=== PATIENT | female | born 1955 | race Caucasian/White ===

== ENCOUNTER 2017-04-26 21:51 | Emergency (ER) | payer OTHER ==
[2017-04-26 22:06] VITALS: TEMP 98.1
[2017-04-26] MEDS ORDERED: FLUORESCEIN SODIUM 1 MG STRIP OP ONE (22:12)
--- NOTE | 2017-04-26 22:26 | EDPHY ---
H & P Time Seen by Provider: 04/26/17 22:02 HPI/ROS: HPI Visual changes. 61-year-old female by private vehicle with her . This patient reports that at 9:00 p.m. she developed which she described as lightening like flashes of light in her upper and lower visual martin. She reports that she noticed this much more when she goes from a light room out into a dark area. She reports that she has had floaters in the past. She reports this is different from what she experienced with her floaters. She denies a black curtain type sensation in her visual field. She had an MRI of her brain about 1 year ago secondary to various neurologic complaints. This showed some white matter changes but otherwise was unremarkable. There was not any evidence of MS. She denies any history of trauma. She does not wear contact lenses. ROS: Constitutional: No fever, no chills. No weakness. Eyes: No discharge. As above. ENT: No sore throat. No nasal congestion or rhinorrhea. Respiratory: No cough. No shortness of breath. Cardiac: No chest pain, no palpitations. Gastrointestinal: No abdominal pain, no vomiting, no diarrhea. Genitourinary: No hematuria. No dysuria or increased frequency with urination. Musculoskeletal: No back pain. No neck pain. No myalgias or arthralgias. Skin: No rashes. Neurological: No headache. No focal weakness or altered sensation. Past medical history: Hypertension. She takes Diovan. Social history: Nonsmoker. No alcohol. Here with her . Physical Exam: General Appearance: Alert, no distress. This patient is responding to questions appropriately and in full sentences. This patient appears well- hydrated and well-nourished. Eyes: Pupils equal and round no pallor or injection. No lid edema, erythema or injection. No photophobia. No nystagmus. Right eye; Shaffer lamp exam with fluorescein staining; no Magda's sign, evidence of abrasion, ulceration or other abnormality. Slit-lamp exam; no hypopyon, no hyphema, anterior chamber is deep and clear, no cell/flare. The upper and lower lids were everted with no gross evidence of foreign body. ENT, Mouth: Mucous membranes are moist. The pharyngeal tissues are unremarkable. No edema or swelling. No asymmetry suggestive of abscess. No erythema or exudates. Respiratory: There are no retractions, lungs are clear to auscultation with good air movement bilaterally. Cardiovascular: Regular rate and rhythm. No murmur. Gastrointestinal: Abdomen is soft and nontender, no masses, bowel sounds normal. No focal tenderness at McBurney's point. No Maciel sign. Neurological: Motor sensory function is grossly intact. Cranial nerves are normal. Gait is normal. Skin: Warm and dry, no rashes. Musculoskeletal: Neck is supple and nontender. Extremities are symmetrical. All joints range without pain or impingement. Psychiatric: No agitation. No depression. Database: EKG: Imaging: Procedures: Ultrasound of the right eye: Using the vascular probe at a depth ranging from 2 -3 cm, no ultrasonographic evidence of retinal detachment appreciated. Procedure performed by myself. Emergency department course: Patient's presentation is not consistent with detached retina. Detached vitreous is possible and more likely. 12:00 a.m., we have tried multiple times to call the on-call receiving barn custodian, Dr. Barba. We have not received any call back. The we then tried to call receiving barn custodian who are not on-call. We have tried Dr. Mirza, Dr. Gray and Dr. Leavitt. We have not received a return call from anyone. I re-evaluated the patient. She reports that this time her symptoms have resolved. She has denied any decrease in her vision from her right eye. She denies headache. She feels comfortable going home. The plan will be to have her follow up with Dr. Wes Gray or Dr. Mirza in the morning in their office. She feels comfortable with this plan as does her . They have both been instructed to return to the emergency department if they are unable to get in to see Dr. Gray or Dr. Mirza tomorrow morning. Return to emergency department precautions were reviewed with them. All of her questions were answered. She was discharged home in good condition. 4:00 a.m., I finally spoke with Dr. Taiwo Barba. He was having an issue with his phone. Dr. Barba was given this patient's personal phone numbers. He will call the patient 1st thing in the morning and have the patient seen in his office in the morning. Differential Diagnosis: The differential diagnosis on this patient includes but is not limited to vitreous detachment, atypical migraine syndrome. Retinal detachment, MS, retinal artery occlusion, CVA, TIA unlikely. This represents a partial list of diagnoses considered. These considerations are based on history, physical exam , past history, reassessment and diagnostic testing. Smoking Status: Never smoked Constitutional: Initial Vital Signs Temperature (C) 36.7 C 04/26/17 22:03 Heart Rate 96 04/26/17 22:03 Respiratory Rate 18 04/26/17 22:03 Blood Pressure 149/100 H 04/26/17 22:03 O2 Sat (%) 94 04/26/17 22:03 O2 Delivery Mode Room Air Allergies/Adverse Reactions: No Known Allergies Allergy (Unverified 04/26/17 22:05) Home Medications: Medication Instructions Recorded DIOVAN 04/12/10 Advair 100/50 (RX) 02/01/15 Albuterol 02/01/15 Clonazepam 02/01/15 Diazepam [Valium] 5 mg PO TID PRN #15 tab 02/01/15 Meclizine HCl [Meclizine HCl 25 mg 50 mg PO BID PRN #25 tab 02/01/15 (RX,OTC)] Albuterol Hfa Anes Only [Proair 2 puffs IH Q4 PRN #1 mdi 04/26/15 Hfa Icu (*)] Fluticasone Hfa 220 Mcg [Flovent 2 puffs IH DAILY #1 mdi 04/26/15 220 MCG Hfa MDI (*)] clonazePAM [Klonopin (*)] 0.5 - 1 mg PO TID PRN #20 tab 04/26/15 predniSONE 40 mg PO DAILY #10 tab 04/26/15 Departure - Departure Disposition: Home, Routine, Self-Care Clinical Impression: Vision changes Condition: Good Instructions: Visual Floaters (ED) Additional Instructions: Read and follow provided instructions. Follow-up with Ophthalmology, Dr. Wes Gray or Dr. Mirza, tomorrow morning as discussed. You are to call their office in the morning at 9:00 a.m. for appointment time. Explain this is for an emergency department follow-up. Explain that we were concerned that you might have a vitreous detachment. Retinal detachment less likely. Explain that the emergency physician tried to contact the on-call receiving barn custodian as well as all of them multiple times last night with no return call. No strenuous physical activity. Return to the emergency department for worsening symptoms/visual changes, headache, vomiting or other serious concerns. Referrals: Wes Gray MD [Medical Doctor] - As per Instructions Jong Mirza MD [Medical Doctor] - As per Instructions
[2017-04-27 00:04] VITALS: BP 118/76; PULSE 74; RESP 16; O2SAT 96
== END 2017-04-27 00:19 | disposition home or self-care (01) ==
DX: H53.8 Other visual disturbances (principal); I10 Essential (primary) hypertension

== ENCOUNTER → 2017-05-07 | Outpatient (CLI) | payer OTHER | LOC: CIMAGING 10:26 | PROVIDERS: ATTEND Family Medicine | DX: K76.0 Fatty (change of) liver, not elsewhere classified (principal); K76.89 Other specified diseases of liver | CPT/HCPCS: 76700-PO ==

== ENCOUNTER → 2017-05-24 | Outpatient (CLI) | payer OTHER ==
[~2017-05-24] MED LIST: IOPAMIDOL (ISOVUE-300) 100 ML BTL ONE
== END ==
LOC: FIMAGING 09:21
PROVIDERS: ATTEND Family Medicine
DX: R11.0 Nausea (principal); R74.0 Nonspecific elevation of levels of transaminase and lactic acid dehydrogenase [LDH]; R93.5 Abnormal findings on diagnostic imaging of other abdominal regions, including retroperitoneum
CPT/HCPCS: Q9967

== ENCOUNTER → 2017-06-25 | Outpatient (CLI) | payer OTHER | LOC: CIMAGING 09:15 | DX: H31.8 Other specified disorders of choroid (principal); C71.9 Malignant neoplasm of brain, unspecified | CPT/HCPCS: Q9967 ==

== ENCOUNTER 2017-07-13 07:29 | Day surgery (SDC) | payer OTHER ==
--- NOTE | 2017-07-13 06:35 | PDANEPAE ---
ANE History of Present Illness 62 yo female with upper abd pain/bloating/nausea and family history of pancreatic cancer for EGD/EUS. ANE Past Medical History - Cardiovascular History Hx Hypertension: Yes Hx Arrhythmias: No Hx Chest Pain: No Hx Coronary Artery / Peripheral Vascular Disease: No Hx CHF / Valvular Disease: No Hx Palpitations: No - Pulmonary History Hx COPD: No Hx Asthma/Reactive Airway Disease: Yes Hx Recent Upper Respiratory Infection: No Hx Oxygen in Use at Home: No Hx Sleep Apnea: Yes Sleep Apnea Screening Result - Last Documented: Negative Pulmonary History Comment: ROMEL -unable to tolerate CPAP - Neurologic History Hx Cerebrovascular Accident: No Hx Seizures: No Hx Dementia: No Neurologic History Comment: occ migraine - Endocrine History Hx Diabetes: No Hypothyroid: No Obesity: no - Renal History Hx Renal Disorders: No - Liver History Hx Hepatic Disorders: No - Neurological & Psychiatric Hx Hx Neurological and Psychiatric Disorders: Yes Neurological / Psychiatric History Comment: low back pain while sitting,lying on (stretcher) - Cancer History Hx Cancer: No - Congenital Disorder History Hx Congenital Disorders: No - GI History Hx Gastrointestinal Disorders: Yes Gastrointestinal History Comment: bloating,nausea, LUQ pain, family hx pancreatic CA - Other Health History Other Health History: fibromyalgia. occ vertigo- no Rx past yr - Chronic Pain History Chronic Pain: No - Surgical History Prior Surgeries: bowel resection 2010. resection of adhesions 2016. hysterectomy. lumbar discectomy ANE Review of Systems Review of Systems: - Exercise capacity METS (RN): 4 METS ANE Patient History - Allergies Allergies/Adverse Reactions: No Known Allergies Allergy (Verified 07/12/17 16:50) - Home Medications Home Medications: DIOVAN 04/12/10 [Last Taken 04/10/10 21:00] Omeprazole 07/12/17 [Last Taken Unknown] - Smoking Hx Smoking Status: Former smoker - Alcohol Use Alcohol Use: None ANE Labs/Vital Signs - Vital Signs Height: 152.4 cm Weight: 65.771 kg ANE Anesthesia Plan Anesthesia Plan: GA with mask Total IV Anesthesia: Yes
[2017-07-13] MEDS ORDERED: LR 1,000 ML IV ONE (07:42)
[2017-07-13] MEDS ORDERED: LIDOCAINE 1% 2 ML INJ ID PRN (07:42)
[2017-07-13] MEDS ORDERED: fentaNYL 100 MCG/2 ML INJ IVP PRN (08:29)
[2017-07-13] MEDS ORDERED: NALOXONE HCL 0.4 MG/ML INJ IVP PRN ×2 (08:29→10:16)
[2017-07-13] MEDS ORDERED: ALBUTEROL 3 ML DEYVIAL IH PRN (08:29)
[2017-07-13] MEDS ORDERED: LR 500 ML IV PRN (08:29)
[2017-07-13] MEDS ORDERED: ONDANSETRON 4 MG/2 ML VIAL IVP PRN (08:29)
--- NOTE | 2017-07-13 08:29 | PDANEPAE ---
ANE History of Present Illness 62 year old female for EUS/EGD. ANE Past Medical History - Cardiovascular History Hx Hypertension: Yes Hx Arrhythmias: No Hx Chest Pain: No Hx Coronary Artery / Peripheral Vascular Disease: No Hx CHF / Valvular Disease: No Hx Palpitations: No - Pulmonary History Hx COPD: No Hx Asthma/Reactive Airway Disease: Yes Hx Recent Upper Respiratory Infection: No Hx Oxygen in Use at Home: No Hx Sleep Apnea: Yes Sleep Apnea Screening Result - Last Documented: Negative Pulmonary History Comment: ROMEL -unable to tolerate CPAP - Neurologic History Hx Cerebrovascular Accident: No Hx Seizures: No Hx Dementia: No Neurologic History Comment: occ migraine - Endocrine History Hx Diabetes: No Hypothyroid: No Obesity: no - Renal History Hx Renal Disorders: No - Liver History Hx Hepatic Disorders: No - Neurological & Psychiatric Hx Hx Neurological and Psychiatric Disorders: Yes Neurological / Psychiatric History Comment: low back pain while sitting,lying on (stretcher) - Cancer History Hx Cancer: No - Congenital Disorder History Hx Congenital Disorders: No - GI History Hx Gastrointestinal Disorders: Yes Gastrointestinal History Comment: bloating,nausea, LUQ pain, family hx pancreatic CA - Other Health History Other Health History: fibromyalgia. occ vertigo- no Rx past yr - Chronic Pain History Chronic Pain: No - Surgical History Prior Surgeries: bowel resection 2010. resection of adhesions 2016. hysterectomy. lumbar discectomy ANE Review of Systems Review of systems is: negative Review of Systems: - Exercise capacity Exercise capacity: >=4 METS METS (RN): 4 METS ANE Patient History - Allergies Allergies/Adverse Reactions: No Known Allergies Allergy (Verified 07/12/17 16:50) - Home Medications Home medications: home medication list seen and reviewed Home Medications: DIOVAN 04/12/10 [Last Taken 04/10/10 21:00] Omeprazole 07/12/17 [Last Taken Unknown] - NPO status NPO Status: no food or drink >8 hours NPO Since - Liquids (Date): 07/13/17 NPO Since - Liquids (Time): 06:00 NPO Since - Solids (Date): 07/12/17 NPO Since - Solids (Time): 18:00 - Anes Hx Anes Hx: no prior problems - Alcohol Use Alcohol Use: None - Family Anes Hx Family Anes Hx: neg - N/A ANE Labs/Vital Signs - Vital Signs Vital Signs: reviewed preoperatively; see RN documention for details Blood Pressure: 128/70 Heart Rate: 67 Respiratory Rate: 18 O2 Sat (%): 96 Height: 152.4 cm Weight: 65.771 kg ANE Physical Exam - Airway Neck exam: FROM Mallampati Score: Class 2 Mouth exam: normal dental/mouth exam - Pulmonary Pulmonary: no respiratory distress - Cardiovascular Cardiovascular: regular rate and rhythym - ASA Status ASA Status: II ANE Anesthesia Plan Anesthesia Plan: GA with mask Total IV Anesthesia: Yes
[2017-07-13] MEDS ORDERED: PROPOFOL/EMULSION 500 MG/50 ML BOTTLE IV ONE (08:43)
--- NOTE | 2017-07-13 09:04 | PDGENHP ---
History & Physical Chief Complaint: abdominal pain, LUQ History of Present Illness: 62 year old female with a family hx of panc ca presents for evaluation of luq abdominal pain, early satiety, nause. Pertinent Past, Social, Family History: PMHx: ROMEL, fibromyalgia Relevant Physical Exam: HEENT: anicteric. CV: RRR +s1s2. Lungs: CTAB. Abd: soft, nt, + BS. No guarding or rebound Cardiorespiratory Assessment: ASA 2
[2017-07-13] MEDS ORDERED: INDOMETHACIN 50 MG SUPP PR PRN (09:36)
[2017-07-13] MEDS ORDERED: NS 500 ML IV SCH (09:45)
[2017-07-13] MEDS ORDERED: ONDANSETRON 4 MG/2 ML VIAL ONE (10:00)
--- NOTE | 2017-07-13 10:13 | POSTANESTH ---
Post Anesthetic Evaluation Cardiovascular Status: Normal, Stable, Similar to Pre-Op Cond Respiratory Status: Normal, Stable, Similar to Pre-op Cond. Level of Consciousness/Mental Status: Can Participate in Eval Pain Control: Adequate, Prn Tx Ordered Nausea/Vomiting Control: Adequate, Prn Tx Ordered Complications Possibly Related to Anesthesia: None Noted
[2017-07-13] MEDS ORDERED: PROMETHAZINE HCL 25 MG/ML INJ IVP PRN (10:16)
--- NOTE | 2017-07-13 10:36 | GIREPORT ---
[facility] - Endoscopy Department Patient Name: Faustina Rivera Procedure Date: 07/13/2017 8:42 AM Patient Type: Outpatient Attending MD/ ER Physician: Mauricio Tejeda MD Procedure: Upper EUS Indications: Abdominal pain in the left upper quadrant, Early satiety, Nausea Patient Profile: 62 year old female presents for evaluation of LUQ abdominal pain, early satiety, nausea, elevated lifer function tests as well rule out chronic pancreatitis. She does have a significant family history of pancreatic cancer. Providers: Mauricio Tejeda MD Medicines: Monitored Anesthesia Care Complications: No immediate complications. Estimated blood loss: Minimal. Description of Procedure: After obtaining informed consent, the endoscope was passed under direct vision. Throughout the procedure, the patient's blood pressure, pulse, and oxygen saturations were monitored continuous ly. The Endosonoscope was introduced through the mouth, and advanced to the second part of duodenum. The Endoscope was introduced through the mouth, and advanced to the second part of duodenum. The esophagus, stomach and duodneum were visualized endosonographically. The upper EUS was accomplis hed without difficulty. The patient tolerated the procedure well. Findings: Endoscopic Finding : The examined esophagus was normal. Patchy mildly erythematous mucosa was found in the gastric body and in the gastric antrum. Biops ies were taken with a cold forceps for histology. The examined duodenum was normal. Biopsies were taken with a cold forceps for histology. Endosonographic Finding : Pancreatic parenchymal abnormalities were noted in the entire pancreas. These consisted of hyperechoic foci. There was no sign of significant endosonographic abnormality in the common bile duct and in the gallbladder. One lymph node was visualized with the ultrasound probe in the peripancreatic region. The node w as round. It measured 10 mm by 10 mm. Fine needle aspiration for cytology was performed. Color Dopp ler imaging was utilized prior to needle puncture to confirm a lack of significant vascular structur es within the needle path. One pass was made with the 25 gauge needle using a transduodenal approac h. A stylet was used. A data analytics specialist was present and performed a preliminary cytologic examination. Preliminary cytology is suggestive of benign inflammatory changes (final results are pending). There was no sign of significant endosonographic abnormality in the entire examined liver. Estimated Blood Loss: Estimated blood loss was minimal. Post Op Diagnosis: - Normal esophagus. - Erythematous mucosa in the gastric body and antrum. Biopsied. - Normal examined duodenum. Biopsied. - Pancreatic parenchymal abnormalities consisting of hyperechoic foci w ere noted in the entire pancreas. - There was no sign of significant pathology in the common bile duct an d in the gallbladder. - One lymph node was visualized and measured in the peripancreatic mark on. The diagnosis is benign inflammatory changes. Fine needle aspiration performed. - There was no evidence of significant pathology in the entire examined liver. - Etiology? No evidence of chronic pancreatitis. No cause of symptoms s een. Will await biopsy results. Recommendation: - Discharge patient to home (with escort). - Return to GI office in 6 weeks. - Await path results. - Thank you for allowing me to participate in the care of your patient. Attending Participation: I personally performed the entire procedure. Mauricio Tejeda MD Mauricio Tejeda MD 07/13/2017 10:35:55 AM Number of Addenda: 0 Note Initiated On: 07/13/2017 8:42 AM [email or web address]
[2017-07-13 11:04] VITALS: BP 110/60; PULSE 50; RESP 14; TEMP 97.7; O2SAT 100
== END 2017-07-13 11:04 | disposition home or self-care (01) ==
LOC: FSGY 07:29
PROVIDERS: ATTEND Internal Medicine Gastroenterology
PROC: 0DB68ZX Excision of Stomach, Via Natural or Artificial Opening Endoscopic, Diagnostic (ICD-10-PCS; principal; 2017-07-13 09:00)
PROC: 0DB98ZX Excision of Duodenum, Via Natural or Artificial Opening Endoscopic, Diagnostic (ICD-10-PCS; principal; 2017-07-13 09:00)
PROC: 079 Lymphatic and Hemic Systems, Drainage (ICD-10-PCS; principal; 2017-07-13 09:00)
DX: R10.12 Left upper quadrant pain (principal); R11.0 Nausea; K29.70 Gastritis, unspecified, without bleeding; D36.0 Benign neoplasm of lymph nodes; G47.33 Obstructive sleep apnea (adult) (pediatric); M79.7 Fibromyalgia; R94.5 Abnormal results of liver function studies; Z80.0 Family history of malignant neoplasm of digestive organs
CPT/HCPCS: J2405; J2704

== ENCOUNTER → 2018-01-26 | Outpatient (CLI) | payer OTHER | LOC: FIMAGING 10:33 | PROVIDERS: ATTEND Obstetrics & Gynecology Gynecology | DX: Z12.31 Encounter for screening mammogram for malignant neoplasm of breast (principal) ==